=== PATIENT | male | born 1935 | race African-American/Black ===

== ENCOUNTER 2018-07-11 16:18 | Emergency (ER) | payer OTHER, MEDICARE ==
[~2018-07-11] VITALS: Ht 157.5 cm; Wt 74.8 kg
[2018-07-11 17:07] LABS: ABSOLUTE LYMPHOCYTES 1.1 thou/uL (0.8-5.3); ABSOLUTE MONOCYTES 0.3 thou/uL (0.0-1.2); ABSOLUTE NEUTROPHILS 2.6 thou/uL (1.6-8.1); BASOPHILS 0.5 %; EOSINOPHILS 0.4 %; HEMATOCRIT 43.9 % (42.0-52.0); HEMOGLOBIN 14.7 gm/dL (14.0-18.0); LYMPHOCYTES 28.1 %; MCH 30.3 pg (26.0-34.0); MCHC 33.5 g/dL (28.0-37.0); MCV 90.4 fL (80.0-100.0); MONOCYTES 6.7 %; MPV 7.3 fl. (7.2-11.1); NUCLEATED RBCS 0 /100WBC; PLATELET COUNT* 240 thou/uL (150-400); POLYS 64.3 %; RBC 4.85 mil/uL (4.50-6.00); RDW-CV 14.1 % (10.5-14.5); WBC 4.1 thou/uL (4.0-11.0)
[2018-07-11 17:27] LABS: ANION GAP 6 mmol/L (7-16); BUN 18 mg/dL (7-18); CALCIUM 9.3 mg/dL (8.5-10.1); CHLORIDE 103 mmol/L (98-107); CO2 30 mmol/L (21-32); CREATININE 1.2 mg/dL (0.6-1.3); GLUCOSE 127 mg/dL (70-99); POTASSIUM 3.2 mmol/L (3.5-5.1); SODIUM 139 mmol/L (136-145); TROPONIN-I LEVEL <0.06 ng/mL (<0.06)
[2018-07-11 17:29] LABS: ALKALINE PHOSPHATASE 60 U/L (46-116); LIPASE 192 U/L (73-393); NT-PRO BRAIN NAT PEPTIDE 30 pg/mL (<300); SGOT 22 U/L (15-37); SGPT 21 U/L (30-65); TOTAL BILIRUBIN 0.7 mg/dL (<0.1-1.0); TOTAL PROTEIN 7.7 g/dL (6.4-8.2)
[2018-07-11 17:45] LABS: URINE BILIRUBIN NEGATIVE (Negative); URINE BLOOD NEGATIVE (Negative); URINE CLARITY CLEAR; URINE COLOR YELLOW; URINE GLUCOSE-RANDOM NEGATIVE (Negative); URINE KETONES NEGATIVE (Negative); URINE LEUKOCYTES-REFLEX NEGATIVE (Negative); URINE NITRITE-REFLEX NEGATIVE (Negative); URINE PROTEIN TRACE (Negative); URINE UROBILINOGEN 0.2 E.U./dl (0.2-1.0)
[2018-07-11 18:09] VITALS: BP 131/68
--- NOTE | 2018-07-12 16:51 | EKG ---
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1935 Requested By: Marium Omalley Order Number: [id number] MD: Ralph Del Valle Measurements Intervals [place] Rate: 84 P: 69 NE: 247 QRS: -11 QRSD: 99 T: 62 QT: 378 QTc: 447 Interpretive Statements Sinus rhythm Prolonged NE interval Left ventricular hypertrophy, by voltage Anterior ST elevation, probably due to LVH No previous ECG available for comparison Electronically Signed On 07-12-2018 16:51:08 CDT by Ralph Del Valle [email or web address] <ELECTRONICALLY SIGNED> By: Ralph Del Valle MD, [facility] 07/12/18 1651 1624 1624 Ralph Del Valle MD, FACC /EPI
== END 2018-07-11 18:10 | disposition home or self-care (01) ==
LOC: M.ERS 16:18
PROVIDERS: Physician Assistant
DX: R61 Generalized hyperhidrosis (principal); R55 Syncope and collapse

== ENCOUNTER → 2019-08-02 | Outpatient (CLI) | payer OTHER, MEDICARE | LOC: M.ULTRA 13:30 | DX: M79.89 Other specified soft tissue disorders (principal) ==

== ENCOUNTER 2020-06-06 08:27 | Emergency (ER) | payer OTHER, MEDICARE ==
[~2020-06-06] VITALS: Ht 162.6 cm; Wt 71.7 kg
[2020-06-06] MEDS ORDERED: CHLORTHALIDONE25 MG PO (08:44)
[2020-06-06] MEDS ORDERED: GARLIC1000 MG PO (08:44)
[2020-06-06] MEDS ORDERED: VITAMIN D350 MC3 PO (08:45)
[2020-06-06] MEDS ORDERED: KLOR-CON M2020 MEQ PO (08:45)
[2020-06-06 09:24] LABS: HEMATOCRIT 41.6 % (42.0-52.0); HEMOGLOBIN 13.7 gm/dL (14.0-18.0); MCH 28.9 pg (26.0-34.0); MCHC 32.9 g/dL (28.0-37.0); MCV 87.8 fL (80.0-100.0); NUCLEATED RBCS 0 /100WBC; PLATELET COUNT* 238 thou/uL (150-400); RBC 4.74 mil/uL (4.50-6.00); RDW-CV 14.1 % (10.5-14.5); WBC 6.8 thou/uL (4.0-11.0)
[2020-06-06 09:39] LABS: CALCIUM 8.2 mg/dL (8.5-10.1); CREATININE 0.9 mg/dL (0.6-1.3); POTASSIUM 3.1 mmol/L (3.5-5.1)
[2020-06-06 09:44] LABS: ALBUMIN 4.2 g/dL (3.4-5.0); TOTAL BILIRUBIN 0.3 mg/dL (<0.1-1.0); TOTAL PROTEIN 7.8 g/dL (6.4-8.2)
[2020-06-06 10:08] LABS: ABSOLUTE LYMPHOCYTES 0.1 thou/uL (0.8-5.3); ABSOLUTE MONOCYTES 0.1 thou/uL (0.0-1.2); ABSOLUTE NEUTROPHILS 6.6 thou/uL (1.6-8.1); PLATELET ESTIMATE ADEQUATE
--- NOTE | 2020-06-06 11:36 | EKG ---
[place] [address] ELECTROCARDIOGRAM REPORT Name: MORAIMA MENENDEZ Room: 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1935 Requested By: Ranjit Hays Order Number: [id number] MD: Gregg Pavon Measurements Intervals [place] Rate: 65 P: 74 MS: QRS: -18 QRSD: 101 T: 66 QT: 400 QTc: 416 Interpretive Statements Sinus rhythm Second deg AVB, Mobitz I (Wenckebach); 4/3 and 3/2 in magnitude Left ventricular hypertrophy Baseline wander in lead(s) V3,V5 Compared to ECG 07/11/2018 16:24:31 First degree AV block no longer present Type I second-degree AV block is noted Electronically Signed On 06-06-2020 11:36:11 VIRTUALIZATION ENGINEER by Gregg Pavon [email or web address] <ELECTRONICALLY SIGNED> By: Gregg Pavon MD, [facility] 06/06/20 1136 0845 0845 Gregg Pavon MD, [facility] /EPI
[2020-06-06] MEDS ORDERED: ZOFRAN4 MG PO (11:56)
[2020-06-06 12:37] VITALS: BP 146/78
== END 2020-06-06 12:38 | disposition home or self-care (01) ==
LOC: M.ERS 08:27
PROVIDERS: Emergency Medicine Emergency Medical Services
DX: R11.2 Nausea with vomiting, unspecified (principal); Z20.822 Contact with and (suspected) exposure to COVID-19; R10.11 Right upper quadrant pain; R10.31 Right lower quadrant pain; I10 Essential (primary) hypertension; Z79.899 Other long term (current) drug therapy